=== PATIENT | female | born 1940 | race Caucasian/White ===

== ENCOUNTER → 2016-10-31 09:43 | Outpatient (CLI) | payer MEDICARE ==
[2016-01-30 07:45] VITALS: BMI 19.8
[~2016-10-31 09:43] MED LIST: ANASTROZOLE1 MG PO; CARAFATE1 G PO; DDAVP0.1 MG PO; GABAPENTIN100 MG PO; GLUCOPHAGE500 MG PO; HYDROCHLOROTH12.5 M1 PO; HYDROCODONE-APA1 TAB PO; PROTONIX20 MG PO
== END | disposition home or self-care (01) ==
LOC: D.US 09:43
DX: B18.2 Chronic viral hepatitis C (principal)

== ENCOUNTER → 2016-12-30 08:59 | Outpatient (CLI) | payer MEDICARE ==
[2016-01-30 07:45] VITALS: BMI 19.8
== END | disposition home or self-care (01) ==
LOC: D.CT 08:59
DX: R16.0 Hepatomegaly, not elsewhere classified (principal)

== ENCOUNTER 2017-03-06 09:30 | Outpatient (CLI) | payer MEDICARE ==
[~2017-03-06] VITALS: Ht 160 cm; Wt 49.1 kg
[2017-03-06] MEDS ORDERED: HARVONI (11:33)
[2017-03-06 11:38] VITALS: BP 127/49; Ht 160 cm; Wt 49.1 kg
--- NOTE | 2017-03-06 11:40 | NUR ---
1115 PATIENT HERE FOR 2 UNITS BLOOD. ACCESSED RT. UPPER CHEST MEDIPORT. 1130 BLOOD STARTED PER PUMP AT 75 AND PT ADVISED TO LET NURSE KNOW IF ANY PROBLEMS.
--- NOTE | 2017-03-06 18:42 | NUR ---
PORT FLUSHED WITH HEP AND SALINE
== END 2017-03-06 17:45 | disposition home or self-care (01) ==
LOC: D.OPS 09:30
DX: D64.9 Anemia, unspecified (principal)

== ENCOUNTER → 2017-08-11 16:04 | Outpatient (CLI) | payer MEDICARE ==
[2017-03-06 11:38] VITALS: BMI 19.1
[~2017-08-11 16:04] MED LIST changes: +HARVONI
== END | disposition home or self-care (01) ==
LOC: D.MAMMO 08-06 14:00 → D.US 08-06 15:00 → D.MAMMO 14:30
DX: Z85.3 Personal history of malignant neoplasm of breast (principal)

== ENCOUNTER 2018-01-22 10:45 | Outpatient (CLI) | payer MEDICARE ==
[~2018-01-22] VITALS: Ht 160 cm; Wt 52.3 kg
[2018-01-22 11:43] VITALS: BP 115/68; Ht 160 cm; Wt 52.3 kg
== END 2018-01-22 18:45 | disposition home or self-care (01) ==
LOC: D.OPS 10:45
DX: D50.9 Iron deficiency anemia, unspecified (principal)

== ENCOUNTER 2018-05-25 19:00 | Outpatient (CLI) | payer MEDICARE ==
[2018-01-22 11:43] VITALS: BMI 20.4
== END 2018-05-25 23:59 | disposition home or self-care (01) ==
LOC: D.MAMMO 19:00
DX: Z12.31 Encounter for screening mammogram for malignant neoplasm of breast (principal)

== ENCOUNTER → 2018-10-22 10:04 | Outpatient (CLI) | payer MEDICARE ==
[2018-01-22 11:43] VITALS: BMI 20.4
== END | disposition home or self-care (01) ==
LOC: D.RAD 08:00
DX: D68.0 Von Willebrand disease (principal); E11.9 Type 2 diabetes mellitus without complications; I10 Essential (primary) hypertension; D50.9 Iron deficiency anemia, unspecified; K31.819 Angiodysplasia of stomach and duodenum without bleeding; B19.20 Unspecified viral hepatitis C without hepatic coma; I85.00 Esophageal varices without bleeding

== ENCOUNTER 2019-04-14 12:43 | Outpatient (CLI) | payer MEDICARE ==
[~2019-04-14] VITALS: Ht 160 cm; Wt 50.9 kg
[2019-04-14 14:47] VITALS: BP 121/46; Ht 160 cm; Wt 50.9 kg
== END 2019-04-14 18:17 | disposition home or self-care (01) ==
LOC: D.OPS 12:43
PROVIDERS: ATTEND Legal Medicine
DX: D50.9 Iron deficiency anemia, unspecified (principal)

== ENCOUNTER 2019-04-27 11:31 | Day surgery (SDC) | payer MEDICARE ==
[~2019-04-27] VITALS: Ht 160 cm; Wt 50.8 kg
[2019-04-27 12:04] LABS: BASOPHILS 0.6 % (0-2); EOSINOPHILS 3.2 % (0-7); HEMATOCRIT 32.5 % (36.0-48.0); HEMOGLOBIN 10.3 g/dL (12-16); IMMATURE GRANULOCYTES 0.3 % (0-5); LYMPHOCYTES 18.2 % (15-50); MCHC 31.7 g/dL (31.0-37.0); MCV 82.1 fL (80.0-100.0); MEAN PLATELET VOLUME 8.5 fL (7.4-10.4); MONOCYTES 9.1 % (2-11); NEUTROPHILS 68.6 % (40-80); RBC 3.96 10x6/uL (4.00-5.40); RDW 16.5 % (11.5-14.5); WBC 3.4 10x3/uL (4.8-10.8)
[2019-04-27 12:06] LABS: PLATELET COUNT 152 10x3/uL (130-400)
[2019-04-27 12:18] LABS: CALC OSMOLALITY 271 mosm/kg (275-300); CALCIUM 8.5 mg/dL (8.5-10.1); CARBON DIOXIDE 29.6 mmol/L (21.0-32.0); CHLORIDE - SERUM 99 mmol/L (98-107); CREATININE - SERUM 0.7 mg/dL (0.6-1.3); GLUCOSE 155 mg/dL (74-106); POTASSIUM - SERUM 3.7 mmol/L (3.5-5.1); SODIUM 134 mmol/L (136-145); UREA NITROGEN 15 mg/dL (7-18); eGFR NON AFRICAN AMERICAN 85 mL/min (90-120)
[2019-04-27 13:55] VITALS: BP 135/57; Ht 160 cm; Wt 50.8 kg
--- NOTE | 2019-04-30 15:59 | HP ---
PATIENT: KAIT AGUILLON MEDICAL RECORD: [id number] ACCOUNT: [id number] LOCATION:[facility] : 38 ADMISSION DATE: 04/27/19 PCP: GOPI ALSTON MD HISTORY AND PHYSICAL EXAMINATION HISTORY OF PRESENT ILLNESS: The patient has recurrent iron-deficiency anemia. She has had melena recently. She has undergone a thorough workup in [place]. She is now here to undergo an upper endoscopy. She has undergone endoscopic procedures in [place] as well as here. I told her that considering her multiple comorbidities including von Willebrand disease and hepatitis C as well as recurrent iron-deficiency anemia and gastric antral vascular ectasias, she likely needs to decide where she is going to be having her endoscopic procedures, either up in [place] with [facility] or here. They have been doing workup of her liver disease including liver elastography, which is not available here. It may be beneficial for her to pick one area to have her endoscopic procedures and that probably needs to be in [place]. PAST MEDICAL AND SURGICAL HISTORY: As described above. Hypertension and noninsulin-dependent diabetes mellitus. SOCIAL HISTORY: Nonsmoker. CURRENT MEDICATIONS: Metformin and others. ALLERGIES: No known drug allergies. PHYSICAL EXAMINATION: GENERAL: The patient does not appear acutely ill. She does appear chronically ill. VITAL SIGNS: Reviewed. EARS: External ears appear normal. EYES: Extraocular movements are intact. NECK: Trachea is midline. CHEST: No intercostal retractions. PULMONARY: Nonlabored. No stridor. ABDOMEN: Nontender. IMPRESSION: Recurrent iron-deficiency anemia in a patient who has cirrhosis and melena. 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 PLAN: EGD and possible argon plasma coagulation therapy. TRANSINT:[id number] Voice Confirmation ID: [id number] DOCUMENT ID: [id number] HISTORY AND PHYSICAL [id number] HENNAKAIT PHILIP ELDRIDGE MD at 1554 CC: LAURA MADDEN MD and LIBRADO WALKER MD [id number] DICTATION DATE: 04/27/19 1613 SUPERVISOR MODEL MAKING: 04/27/19 1654 [facility] 04/27/19 [place] [id number] [place] [address]
--- NOTE | 2019-04-30 16:07 | OP ---
PATIENT NAME: KAIT AGUILLON MEDICAL RECORD: [id number] :38 LOCATION:D.[facility] ADMISSION DATE: SURGEON: PHILIP FONTENOT MD DATE OF OPERATION: 04/27/2019 PREOPERATIVE DIAGNOSES: 1. Melena. 2. Recurrent iron deficiency anemia. 3. History of gastric antral vascular ectasias. 4. History of cirrhosis. POSTOPERATIVE DIAGNOSES: 1. Melena. 2. Recurrent iron deficiency anemia. 3. History of gastric antral vascular ectasias. 4. History of cirrhosis. 5. No evidence of esophageal varices. 6. Portal hypertensive gastropathy. 7. Minimal to moderate recurrence of gastric antral vascular ectasia, I am not sure whether this is enough to account for her bleeding or not. I noted no evidence of active bleeding. PROCEDURE PERFORMED: Esophagogastroduodenoscopy with treatment of angioectasias with the argon plasma activity coordinator. SURGEON: Philip Fontenot MD MECHANICAL ENGINEERING PROFESSOR: None. BLOOD LOSS: Minimal. ANESTHESIA: IV sedation. COMPLICATIONS: None. The risks, possible complications and alternatives to procedure were explained to the patient. She elects to proceed. ENDOSCOPIC COURSE: The patient was conveyed to endoscopy suite electively on 04/27/2019. IV sedation was induced by the anesthesia staff. A bite block was inserted. A gastroscope was inserted into the mouth. It was advanced easily into the hypopharynx. The esophagus was easily intubated as were the stomach and duodenum. Upon withdrawal, retroflexed and angulus views were obtained. No biopsies were obtained. In areas of gastric antral vascular ectasias and some of these ectasias extended on to the body of the stomach, I performed argon plasma coagulation therapy ablating these utilizing the esophageal setting in the forced mode. The patient developed some bradycardia toward the end of the procedure and the procedure was terminated. This was likely a vagal response to the argon plasma procedure. The patient was then conveyed back to her room. Endoscopic photos were discussed with her and her family. TRANSINT:[id number] Voice Confirmation ID: [id number] DOCUMENT ID: [id number] OPERATIVE REPORT [id number] KAIT AGUILLON PHILIP ELDRIDGE MD at 1607 CC: LAURA MADDEN MD and LIBRADO WALKER MD [id number] DICTATION DATE: 04/27/19 1643 MEDICAL RADIATION DOSIMETRIST: 04/27/193 [facility] 04/27/19 [place] [id number] [place] [id number]
== END 2019-04-27 18:20 | disposition home or self-care (01) ==
LOC: D.OPS 11:31
PROVIDERS: Anesthesiology; ATTEND Surgery
DX: K76.6 Portal hypertension (principal); K31.89 Other diseases of stomach and duodenum; D50.9 Iron deficiency anemia, unspecified; K74.60 Unspecified cirrhosis of liver; Z01.812 Encounter for preprocedural laboratory examination

== ENCOUNTER 2019-06-10 09:00 | Outpatient (CLI) | payer MEDICARE ==
[2019-04-27 13:55] VITALS: BMI 19.8
== END 2019-06-10 10:00 | disposition home or self-care (01) ==
LOC: D.MAMMO 09:00
PROVIDERS: ATTEND Family Medicine
DX: Z12.31 Encounter for screening mammogram for malignant neoplasm of breast (principal)

== ENCOUNTER → 2019-06-23 09:51 | Outpatient (CLI) | payer MEDICARE ==
[2019-04-27 13:55] VITALS: BMI 19.8
[2019-06-23 11:00] LABS: HEMATOCRIT 37.9 % (36.0-48.0); HEMOGLOBIN 12.3 g/dL (12-16); MCH 28.3 pg (26.0-34.0); MCHC 32.5 g/dL (31.0-37.0); MCV 87.3 fL (80.0-100.0); MEAN PLATELET VOLUME 8.3 fL (7.4-10.4); RBC 4.34 10x6/uL (4.00-5.40); RDW 22.1 % (11.5-14.5)
[2019-06-23 11:03] LABS: PLATELET COUNT 98 10x3/uL (130-400)
[2019-06-23 11:11] LABS: ALKALINE PHOSPHATASE 53 U/L (46-116); ALT (SGPT) 23 U/L (10-68); BILIRUBIN - TOTAL 0.72 mg/dL (0.2-1.3); CALC OSMOLALITY 284 mosm/kg (275-300); CHLORIDE - SERUM 104 mmol/L (98-107); CREATININE - SERUM 0.6 mg/dL (0.6-1.3); GLUCOSE 145 mg/dL (74-106); POTASSIUM - SERUM 3.7 mmol/L (3.5-5.1); PROTEIN - SERUM 7.1 g/dL (6.4-8.2); SODIUM 142 mmol/L (136-145); UREA NITROGEN 10 mg/dL (7-18); eGFR NON AFRICAN AMERICAN > 90 mL/min (90-120)
[2019-06-23 11:13] LABS: INR 1.08 (0.85-1.17); PROTIME 13.5 SECONDS (11.6-15.0)
[2019-06-23 14:18] LABS: EOSINOPHILS 4 % (0-7); LYMPHOCYTES 18 % (15-50); MONOCYTES 11 % (2-11); NEUTROPHILS 67 % (40-80); PLATELET ESTIMATE DECREASED
[2019-06-24 11:10] LABS: ANA REFLEX - DIRECT Negative (Negative)
[2019-06-26 16:08] LABS: MITOCHONDRIAL ANTIBODY 44.4 Units (0.0-20.0); SMOOTH MUSCLE ABS (ACTIN) 18 Units (0-19)
== END | disposition home or self-care (01) ==
LOC: D.US 05-26 09:00
PROVIDERS: ATTEND Internal Medicine Gastroenterology
DX: D50.9 Iron deficiency anemia, unspecified (principal); K74.60 Unspecified cirrhosis of liver

== ENCOUNTER → 2020-03-22 11:02 | Outpatient (CLI) | payer MEDICARE ==
[2019-04-27 13:55] VITALS: BMI 19.8
[2020-03-22 12:05] LABS: BASOPHILS 0.5 % (0-2); EOSINOPHILS 4.4 % (0-7); HEMATOCRIT 46.3 % (36.0-48.0); HEMOGLOBIN 15.2 g/dL (12-16); IMMATURE GRANULOCYTES 0.2 % (0-5); LYMPHOCYTES 17.6 % (15-50); MCH 31.9 pg (26.0-34.0); MCHC 32.8 g/dL (31.0-37.0); MCV 97.3 fL (80.0-100.0); MEAN PLATELET VOLUME 8.5 fL (7.4-10.4); MONOCYTES 9.5 % (2-11); NEUTROPHILS 67.8 % (40-80); PLATELET COUNT 107 10x3/uL (130-400); RBC 4.76 10x6/uL (4.00-5.40); RDW 12.6 % (11.5-14.5); WBC 4.1 10x3/uL (4.8-10.8)
[2020-03-22 12:30] LABS: ANION GAP 11.7 mmol/L (8-16); BILIRUBIN - TOTAL 0.95 mg/dL (0.2-1.3); CALCIUM 9.1 mg/dL (8.5-10.1); CARBON DIOXIDE 28.5 mmol/L (21.0-32.0); CREATININE - SERUM 0.8 mg/dL (0.6-1.3); POTASSIUM - SERUM 4.2 mmol/L (3.5-5.1); PROTEIN - SERUM 7.3 g/dL (6.4-8.2)
[2020-03-22 12:40] LABS: INR 1.01 (0.85-1.17); PROTIME 13.2 SECONDS (11.6-15.0)
== END | disposition home or self-care (01) ==
LOC: D.LAB 10:45 → D.US 11:00 → D.LAB 11:02
PROVIDERS: ATTEND Internal Medicine Gastroenterology
DX: K74.60 Unspecified cirrhosis of liver (principal)

== ENCOUNTER → 2020-04-18 23:57 | Outpatient (CLI) | payer MEDICARE ==
[2019-04-27 13:55] VITALS: BMI 19.8
== END | disposition home or self-care (01) ==
LOC: D.MAMMO 14:00
PROVIDERS: ATTEND Family Medicine
DX: Z12.31 Encounter for screening mammogram for malignant neoplasm of breast (principal)

== ENCOUNTER → 2021-04-05 09:32 | Outpatient (CLI) | payer MEDICARE ==
[2019-04-27 13:55] VITALS: BMI 19.8
== END | disposition home or self-care (01) ==
LOC: D.US 09:30
PROVIDERS: ATTEND Internal Medicine Gastroenterology
DX: K74.60 Unspecified cirrhosis of liver (principal); D50.9 Iron deficiency anemia, unspecified; K31.819 Angiodysplasia of stomach and duodenum without bleeding; E11.9 Type 2 diabetes mellitus without complications